=== PATIENT | male | born 1990 | race Caucasian/White ===

== ENCOUNTER 2018-12-18 06:40 | Emergency (ER) | payer BC ==
[~2018-12-18] VITALS: Ht 177.8 cm; Wt 111.1 kg
[2018-12-18 06:42] VITALS: Ht 177.8 cm; Wt 111.1 kg
[2018-12-18 07:40] LABS: BASOPHIL % 0.4 % (0-2); PLATELET COUNT 187 x10^3mcL (130-400)
[2018-12-18 08:32] LABS: CALCIUM 8.2 mg/dL (8.5-10.1); CARBON DIOXIDE 26.4 mmol/L (21-32); CHLORIDE SERUM 102 mmol/L (98-107); CREATININE SERUM 0.8 mg/dL (0.7-1.3); GFR1 > 60 mL/min; GLUCOSE SERUM 344 mg/dL (74-106); POTASSIUM SERUM 4.7 mmol/L (3.5-5.1); SODIUM SERUM 137 mmol/L (136-145)
[2018-12-18 08:37] LABS: ALBUMIN 3.5 g/dL (3.4-5.0); ALKALINE PHOSPHATASE 117 U/L (46-116); ALT/SGPT 42 U/L (16-63); AST/SGOT 20 U/L (15-37); BILIRUBIN TOTAL 0.77 mg/dL (0.20-1.00); TOTAL PROTEIN, SERUM 7.5 g/dL (6.4-8.2)
[2018-12-18 09:32] VITALS: BP 116/70
== END 2018-12-18 09:38 | disposition home or self-care (01) ==
LOC: ED 06:40
PROVIDERS: Emergency Medicine
DX: E11.65 Type 2 diabetes mellitus with hyperglycemia (principal); R20.2 Paresthesia of skin
CPT/HCPCS: 82962; J1885; J7030

== ENCOUNTER 2020-02-08 21:47 | Emergency (ER) | payer OTHER ==
[~2020-02-08] VITALS: Ht 175.3 cm; Wt 117.9 kg
[2020-02-08 21:58] VITALS: Ht 175.3 cm; Wt 117.9 kg
[2020-02-08 23:20] LABS: BASOPHIL % 0.3 % (0-2); PLATELET COUNT 180 x10^3mcL (130-400); RED CELL DISTRIBUTION WIDTH 12.8 % (11.5-14.5)
[2020-02-08 23:26] LABS: CALCIUM 8.4 mg/dL (8.5-10.1); CARBON DIOXIDE 27.7 mmol/L (21-32); CHLORIDE SERUM 96 mmol/L (98-107); CREATININE SERUM 0.9 mg/dL (0.7-1.3); GFR1 > 60 mL/min; GLUCOSE SERUM 389 mg/dL (74-106); POTASSIUM SERUM 3.6 mmol/L (3.5-5.1); SODIUM SERUM 131 mmol/L (136-145)
[2020-02-08 23:31] LABS: ALBUMIN 3.6 g/dL (3.4-5.0); ALKALINE PHOSPHATASE 133 U/L (46-116); ALT/SGPT 47 U/L (16-63); AST/SGOT 28 U/L (15-37); BILIRUBIN TOTAL 0.7 mg/dL (0.20-1.00); TOTAL PROTEIN, SERUM 7.4 g/dL (6.4-8.2)
[2020-02-09 01:02] VITALS: BP 127/76
== END 2020-02-09 01:02 | disposition home or self-care (01) ==
LOC: ED 21:47
PROVIDERS: Emergency Medicine
DX: E11.40 Type 2 diabetes mellitus with diabetic neuropathy, unspecified (principal); E11.65 Type 2 diabetes mellitus with hyperglycemia; R07.89 Other chest pain; I10 Essential (primary) hypertension
CPT/HCPCS: 82962; J7030; Q0092

== ENCOUNTER 2020-04-14 05:22 | Emergency (ER) | payer OTHER ==
[~2020-04-14] VITALS: Ht 177.8 cm; Wt 112.9 kg
[2020-04-14 05:32] VITALS: BP 114/72; Ht 177.8 cm; Wt 112.9 kg
== END 2020-04-14 06:35 | disposition left against medical advice (07) ==
LOC: ED 05:22
DX: Z53.21 Procedure and treatment not carried out due to patient leaving prior to being seen by health care provider (principal)